=== PATIENT | female | born 1965 | race Two or more races ===

== ENCOUNTER 2017-08-10 14:20 | Day surgery (SDC) | payer OTHER ==
[2017-08-10] VITALS (10 sets, daily range): BP systolic 120–138; BP diastolic 69–82
[~2017-08-10] VITALS: Ht 157.5 cm; Wt 59.9 kg
--- NOTE | 2017-08-10 15:00 | History & Physical ---
History and Physical History & Physicial GYNECOLOGY HISTORY AND PHYSICAL CC: Vaginal bleeding since March, intermittently heavy with passage of large clots HPI: Patient presented to me today with report of persistent bleeding since March with intermittent heavy bleeding with clots q2w for 1-2 weeks at a time. She also reports some watery yellow-jame discharge. Some abdominal pain but denies any today. She had an ultrasound in June which was remarkable for uterine fibroids and bilateral small ovarian cysts. In my office, speculum exam revealed a prolapsing myoma that was not amenable to removal in the office safely. Thus the patient was sent to the ED for evaluation and likely surgical intervention. PMH: Hyperlipidemia managed with diet, seasonal allergies managed with nasal spray, denies HTN, DM, or ashtma. PSH: Hysteroscopu and HSG for infertility MEDS: Nasal spray, denies any other meds ALLERGIES: NKDA SOCHx: Denies T/E/D, works as a sales and marketing engineer VITALS: BP 140/80 in the office, P 78 PHYSICAL EXAM: GEN: NAD, A&Ox4 HEENT:OP clear, MMM CV: RRR PULM: No increased work of breathing, resp even/unlabored ABD: Soft, moderate TTP in RLQ, mild TTP in LLQ and suprapubic area PELVIC: NEFG, no masses or lesions. Cervix normal shape, but once Pap performed a mass was noted to begin protruding from the external os. Noted to be a prolapsing cervical fibroid. Bleeding noted around fibroid and building up within the vault. Uterus TTP on elevation and enlarged with palpable fibroid in RLQ. NO adnexal masses appreciated. EXT: No calf TTP, WWP LABS: CBC: 7.2>12.0/36.0<263 ASSESSMENT/PLAN: Patient with prolapsing fibroid on exam and vaginal bleeding. I recommend immediate removal of fibroid, but cannot be safely done in the office due to risk of bleeding. Patient counseled that I recommend she be seen in the ED immediately and plan for surgical removal of fibroid at the hospital. Patient is ambulatory and clinically stable. She will self-transport to [facility] where she will be evalauted in ED and anticipate transfer to OR once ED workup complete. Recommend Pelvic US once in ED. Angie Weldon M.D. Aug 10, 2017 15:00
--- NOTE | 2017-08-10 15:04 | Emergency Room Report ---
History of Present Illness General Chief Complaint: Vaginal Source: Patient Present Illness HPI Patient present with increase in heavy vaginal bleeding Patient has been lightheaded has been having off-and-on increased bleeding After being evaluated earlier today patient was found to have more complicated vaginal bleeding and sent to the emergency room Patient here denies any chest pain Denies any back or flank pain denies any vomiting or diarrhea Denies any recent change in medications Allergies: Coded Allergies: Molds and Smuts (Verified Allergy, Unknown, 08/10/17) Patient History Past Medical History: see triage record Pertinent Family History: none Last Menstrual Period: Unk Reviewed Nursing Documentation: PMH: Agreed, PSxH: Agreed Nursing Documentation-PMH Past Medical History: No Stated History Review of Systems All Other Systems: negative except mentioned in HPI Physical Exam Vital Signs Date Time Temp Pulse Resp B/P (MAP) Pulse Ox O2 Delivery O2 Flow Rate FiO2 08/10/17 14:29 98.6 76 16 136/82 98 Room Air Sp02 EP Interpretation: reviewed, normal General Appearance: alert, GCS 15 Head: normocephalic, atraumatic Eyes: bilateral eye PERRL, bilateral eye EOMI ENT: hearing grossly normal, normal pharynx, TMs + canals normal, uvula midline Neck: full range of motion, supple, no meningismus, no bony tend Respiratory: lungs clear, normal breath sounds, no rhonchi, no respiratory distress, no retraction, no accessory muscle use Cardiovascular #1: normal peripheral pulses, regular rate, rhythm, no edema, no gallop, no JVD, no murmur Gastrointestinal: normal bowel sounds, non tender, soft, no mass, no organomegaly, non-distended, no guarding, no hernia, no pulsatile mass, no rebound Genitourinary: no CVA tenderness, other - Heavy vaginal bleeding noted, there is a mass palpated clinically ultrasound is pending Musculoskeletal: normal inspection Neurologic: oriented x3, responsive, conflicts analyst III-XII nml as tested, motor strength/ tone normal, sensory intact Psychiatric: mood/affect normal Skin: normal color, no rash, warm/dry, palpation normal Lymphatic: normal inspection, no adenopathy Medical Decision Making Diagnostic Impression: Primary Impression: significant bleeding Additional Impression: Vaginal bleeding ER Course Given the patient's history and presentation multiple differentials considered I did speak to the patient specialist to report of the patient has had a prolapsed fibroid which has been bleeding significantly Examination also reveals vaginal bleeding Patient had ultrasound obtained from the emergency room at this time requires further operative care Labs Test 08/10/17 15:00 White Blood Count 9.3 K/UL (4.8-10.8) Red Blood Count 4.15 M/UL (4.20-5.40) Hemoglobin 13.4 G/DL (12.0-16.0) Hematocrit 41.1 % (37.0-47.0) Mean Corpuscular Volume 99 FL (80-99) Mean Corpuscular Hemoglobin 32.3 PG (27.0-31.0) Mean Corpuscular Hemoglobin Concent 32.6 G/DL (32.0-36.0) Red Cell Distribution Width 12.5 % (11.6-14.8) Platelet Count 257 K/UL (150-450) Mean Platelet Volume 6.6 FL (6.5-10.1) Neutrophils (%) (Auto) 80.4 % (45.0-75.0) Lymphocytes (%) (Auto) 11.7 % (20.0-45.0) Monocytes (%) (Auto) 5.9 % (1.0-10.0) Eosinophils (%) (Auto) 0.9 % (0.0-3.0) Basophils (%) (Auto) 1.1 % (0.0-2.0) Prothrombin Time 9.6 SEC (9.30-11.50) Prothromb Time International Ratio 0.9 (0.9-1.1) Activated Partial Thromboplast Time 27 SEC (23-33) Sodium Level 139 MMOL/L (136-145) Potassium Level 3.9 MMOL/L (3.5-5.1) Chloride Level 105 MMOL/L (98-107) Carbon Dioxide Level 26 MMOL/L (21-32) Anion Gap 9 mmol/L (5-15) Blood Urea Nitrogen 13 mg/dL (7-18) Creatinine 0.6 MG/DL (0.55-1.30) Estimat Glomerular Filtration Rate > 60 mL/min (>60) Glucose Level 110 MG/DL (74-106) Calcium Level 9.4 MG/DL (8.5-10.1) CT/MRI/US Diagnostic Results CT/MRI/US Diagnostic Results : Impression pelvic ultrasoundImpression: Bulbous thickening appearing endometrium. Further evaluation of this is needed. The prominence could be on the basis of an underlying submucosal fibroid, polyp or other mass. CARGO MATE referral is recommended as followup. MRI may be helpful for further evaluation. Multiple uterine fibroids. Last Vital Signs Date Time Temp Pulse Resp B/P (MAP) Pulse Ox O2 Delivery O2 Flow Rate FiO2 08/10/17 14:29 98.6 76 16 136/82 98 Room Air Status: improved Disposition: HOME, SELF-CARE Condition: Improved Additional Instructions: The patient is taken to the operative room, will be having a procedure and anticipated discharge home FLORIAN SLATER D.O. Aug 10, 2017 15:04
[2017-08-10 15:20] LABS: BASOPHILS % (AUTO) 1.1 % (0.0-2.0); EOSINOPHILS % (AUTO) 0.9 % (0.0-3.0); LYMPHOCYTES % (AUTO) 11.7 % (20.0-45.0); MEAN CORPUSCULAR HEMOGLOBIN 32.3 PG (27.0-31.0); MEAN CORPUSCULAR HGB CONC 32.6 G/DL (32.0-36.0); MEAN CORPUSCULAR VOLUME 99 FL (80-99); MEAN PLATELET VOLUME 6.6 FL (6.5-10.1); MONOCYTES % (AUTO) 5.9 % (1.0-10.0); NEUTROPHILS % (AUTO) 80.4 % (45.0-75.0); PLATELET COUNT 257 K/UL (150-450); RED BLOOD COUNT 4.15 M/UL (4.20-5.40); RED CELL DISTRIBUTION WIDTH 12.5 % (11.6-14.8); WHITE BLOOD COUNT 9.3 K/UL (4.8-10.8)
[2017-08-10 15:28] LABS: INR 0.9 (0.9-1.1); PROTHROMBIN TIME 9.6 SEC (9.30-11.50)
[2017-08-10 15:33] LABS: ANION GAP 9 mmol/L (5-15); CALCIUM 9.4 MG/DL (8.5-10.1); CARBON DIOXIDE 26 MMOL/L (21-32); CHLORIDE 105 MMOL/L (98-107); CREATININE 0.6 MG/DL (0.55-1.30); GLOMERULAR FILTRATION RATE > 60 mL/min (>60); POTASSIUM 3.9 MMOL/L (3.5-5.1); SODIUM 139 MMOL/L (136-145)
[2017-08-10] MEDS ORDERED: cefOXitin 1gm Inj ONE (16:15)
[2017-08-10] MEDS ORDERED: Bupivacaine 0.5% Inj 30 ml vial INJ ONE (16:18)
[2017-08-10] MEDS ORDERED: NKM (16:53)
--- NOTE | 2017-08-10 16:53 | Diagnostic Imaging Report ---
Indication:Vaginal bleeding. Pelvic pain Technique: Grayscale and duplex Doppler imaging of the pelvis performed utilizing a transabdominal scan and endovaginal scan. Comparison: None Findings: Multiple masses are noted in the uterus. The largest of these is about 4 cm demonstrated within the dorsal or posterior uterine body. The endometrium is prominent and heterogeneous (20mm). Underlying endometrial polyp and/or a submucosal fibroid is not excluded. Further evaluation with MRI is recommended. Both ovaries are normal in appearance and demonstrates a few follicles a dopplerable blood flow. The right ovary is 3.6 x 2.5 x 1.8 cm. Left ovary 3.5 x 2.2 x 1.7 cm. Uterus measures 8.9 x 8 x 5.2 cm. Impression: Bulbous thickening appearing endometrium. Further evaluation of this is needed. The prominence could be on the basis of an underlying submucosal fibroid, polyp or other mass. PRODUCT HANDLER referral is recommended as followup. MRI may be helpful for further evaluation. Multiple uterine fibroids.
[2017-08-10] MEDS ORDERED: LR 1000ml 1,000 ML IVLG SCH (16:56)
--- NOTE | 2017-08-10 16:56 | Anethesia Preoperative Eval ---
Anesthesia Pre-op PMH/ROS General Date of Evaluation: Aug 10, 2017 Time of Evaluation: 17:56 Anesthesiologist: Gabriel ASA Score: ASA 2 - Emergency Mallampati Score Class I : Soft palate, uvula, fauces, pillars visible Class II: Soft palate, uvula, fauces visible Class III: Soft palate, base of uvula visible Class IV: Only hard plate visible Mallampati Classification: Class II Surgeon: Fatemeh Diagnosis: Vaginal Bleeding Surgical Procedure: Myomectomy Anesthesia History: none Family History: no anesthesia problems Allergies: Coded Allergies: Molds and Smuts (Verified Allergy, Unknown, 08/10/17) Medications: see eMAR Past Medical History Cardiovascular: Reports: HTN Anesthesia Pre-op Phys. Exam Physician Exam Last Vital Signs Date Time Temp Pulse Resp B/P (MAP) Pulse Ox O2 Delivery O2 Flow Rate FiO2 08/10/17 14:29 98.6 76 16 136/82 98 Room Air Constitutional: NAD Neurologic: CN 2-12 intact Cardiovascular: RRR Respiratory: CTA Gastrointestinal: S/NT/ND Airway Exam Mallampati Score: Class II MO: limited ROM: full Teeth: intact Anesthesia Pre-op A/P Labs Hematology Test 08/10/17 15:00 White Blood Count 9.3 K/UL (4.8-10.8) Red Blood Count 4.15 M/UL (4.20-5.40) L Hemoglobin 13.4 G/DL (12.0-16.0) Hematocrit 41.1 % (37.0-47.0) Mean Corpuscular Volume 99 FL (80-99) Mean Corpuscular Hemoglobin 32.3 PG (27.0-31.0) H Mean Corpuscular Hemoglobin Concent 32.6 G/DL (32.0-36.0) Red Cell Distribution Width 12.5 % (11.6-14.8) Platelet Count 257 K/UL (150-450) Mean Platelet Volume 6.6 FL (6.5-10.1) Neutrophils (%) (Auto) 80.4 % (45.0-75.0) H Lymphocytes (%) (Auto) 11.7 % (20.0-45.0) L Monocytes (%) (Auto) 5.9 % (1.0-10.0) Eosinophils (%) (Auto) 0.9 % (0.0-3.0) Basophils (%) (Auto) 1.1 % (0.0-2.0) Coagulation Test 08/10/17 15:00 Prothrombin Time 9.6 SEC (9.30-11.50) Prothromb Time International Ratio 0.9 (0.9-1.1) Activated Partial Thromboplast Time 27 SEC (23-33) Chemistry Test 08/10/17 15:00 Sodium Level 139 MMOL/L (136-145) Potassium Level 3.9 MMOL/L (3.5-5.1) Chloride Level 105 MMOL/L (98-107) Carbon Dioxide Level 26 MMOL/L (21-32) Anion Gap 9 mmol/L (5-15) Blood Urea Nitrogen 13 mg/dL (7-18) Creatinine 0.6 MG/DL (0.55-1.30) Estimat Glomerular Filtration Rate > 60 mL/min (>60) Glucose Level 110 MG/DL (74-106) H Calcium Level 9.4 MG/DL (8.5-10.1) Risk Assessment & Plan Assessment: ASA 2E Plan: GA, BIS, GlideScope Status Change Before Surgery: No Pre-Antibiotics Dru Gram Cefoxitin IV Given Within 1 Hr of Incision: Yes Time Given: 18:16 Trace Rios MD Aug 10, 2017 16:56
[2017-08-10] MEDS ORDERED: LR 1000ml ONE (17:00)
[2017-08-10] MEDS ORDERED: Hydromorphone 0.5mg/0.5ml inj IVP PRN (17:00)
[2017-08-10] MEDS ORDERED: Ketorolac 30mg Inj IV PRN (17:00)
[2017-08-10] MEDS ORDERED: Norco 5mg/325mg tab ORAL PRN (17:00)
[2017-08-10] MEDS ORDERED: LORazepam Inj 2mg/ml 1ml IV PRN (17:00)
[2017-08-10] MEDS ORDERED: Metoclopramide 10mg/2ml Inj IVP PRN (17:00)
[2017-08-10] MEDS ORDERED: ProvayBlue 5mg/ml 10ml amp INJ ONE (17:00)
[2017-08-10] MEDS ORDERED: Norco 7.5mg/325mg tab ORAL PRN (17:00)
[2017-08-10] MEDS ORDERED: Dexamethasone 4mg/ml vial ONE (17:00)
[2017-08-10] MEDS ORDERED: Midazolam 2mg/2ml Inj ONE (17:00)
[2017-08-10] MEDS ORDERED: Lidocaine 1% MPF 10mg/ml 5ml ONE (17:00)
[2017-08-10] MEDS ORDERED: Midazolam 2mg/2ml Inj IVP PRN (17:00)
[2017-08-10] MEDS ORDERED: Atropine Inj 1mg/10ml Syr IV PRN (17:00)
[2017-08-10] MEDS ORDERED: Sulfanilamide 15% Cream - 78gm VAGIN ONE (17:00)
[2017-08-10] MEDS ORDERED: DiphenhydrAMINE 50mg/ml Inj IVP PRN (17:00)
[2017-08-10] MEDS ORDERED: Ketorolac 60mg Inj IV PRN (17:00)
[2017-08-10] MEDS ORDERED: oxyCODONE HCL/Acetaminophen 5/325mg ORAL PRN (17:00)
[2017-08-10] MEDS ORDERED: fentaNYL 100 mcg/2 mL IV PRN (17:00)
[2017-08-10] MEDS ORDERED: fentaNYL 100 mcg/2 mL IV ONE (17:00)
[2017-08-10] MEDS ORDERED: Ketorolac 30mg Inj ONE (17:00)
[2017-08-10] MEDS ORDERED: Propofol 200mg/20ml IV ONE (17:00)
[2017-08-10] MEDS ORDERED: Acetaminophen (Non formulary) 100 ML IV ONE (17:15)
--- NOTE | 2017-08-10 18:05 | Immediate Post-Op Evaluation ---
Immediate Post-Op Evalulation Immediate Post-Op Evalulation Procedure: Myomectomy Date of Evaluation: Aug 10, 2017 Time of Evaluation: 19:15 IV Fluids: 300 LR Blood Products: 0 Estimated Blood Loss: 20 Urinary Output: 0 Blood Pressure Systolic: 135 Blood Pressure Diastolic: 87 Pulse Rate: 94 Respiratory Rate: 16 O2 Sat by Pulse Oximetry: 100 Temperature (Fahrenheit): 97.3 Pain Score (1-10): 2 Nausea: No Vomiting: No Complications 0 Patient Status: awake, reacts, patent, extubated, none Hydration Status: adequate Dru Gram Cefoxitin IV Time Given: 18:16 Trace Rios MD Aug 10, 2017 18:05
--- NOTE | 2017-08-10 18:37 | 48 Hour Post Anesthesia Eval ---
Post Anesthesia Evaluation Procedure: Myomectomy Date of Evaluation: Aug 10, 2017 Time of Evaluation: 21:23 Blood Pressure Systolic: 143 0: 78 Pulse Rate: 67 Respiratory Rate: 18 Temperature (Fahrenheit): 98.2 O2 Sat by Pulse Oximetry: 100 Airway: patent Nausea: No Vomiting: No Pain Intensity: 2 Hydration Status: adequate Cardiopulmonary Status: Stable Mental Status/LOC: patient returned to baseline Follow-up Care/Observations: 0 Post-Anesthesia Complications: 0 Follow-up care needed: ready to discharge Trace Rios MD Aug 10, 2017 18:37
[2017-08-10] MEDS ORDERED: NS Irrig 1000ml IRRIG ONE (19:02)
--- NOTE | 2017-08-10 19:16 | Pre-Procedure Note/Attestation ---
Pre-Procedure Note/Attestation Complete Prior to Procedure Procedure Narrative: Vaginal myomectomy, hysteroscopy, dilation and curettage Indications for Procedure Pre-Operative Diagnosis: Prolapsing myoma, and abnormal uterine bleeding Attestation I attest that I discussed the nature of the procedure; its benefits; risks and complications; and alternatives (and the risks and benefits of such alternatives ), prior to the procedure, with the patient (or the patient's legal escrow representative). I attest that, if there was a reasonable possibility of needing a blood transfusion, the patient (or the patient's legal escrow representative) was given the [facility] standardized written summary, pursuant to the [facility] Blood Safety Act ([place] Health and Safety Code # 1645, as amended). I attest that I re-evaluated the patient just prior to the surgery and that there has been no change in the patient's H&P, except as documented below: Angie Klein M.D. Aug 10, 2017 19:16
--- NOTE | 2017-08-10 19:20 | Brief Operative Note ---
Immediate Post Operative Note Operative Note Pre-op Diagnosis: Prolapsing myoma, and abnormal uterine bleeding Procedure: Vaginal myomectomy, hysteroscopy, dilation and curettage Post-op Diagnosis: Prolapsing cervical myoma, abnormal uterine bleeding Post-op Diagnosis: same as pre-op Findings: consistent w/pre-op dx studies Surgeon: Angie Weldon MD Financial Systems Analyst: Charlie Trevizo MD ([place]) Anesthesiologist: Trace Rios MD Anesthesia: general Specimen: yes - Cervical myoma, endometrial curettings Complications: none Condition: stable Fluids: 500cc LR Estimated Blood Loss: volume - 20cc Drains: none Packing: None Implant(s) used?: No Angie Weldon M.D. Aug 10, 2017 19:20
--- NOTE | 2017-08-10 19:21 | Discharge Instructions ---
Discharge Instructions Discharge Instructions Call MD/Return to Hospital if: Worsening bleeding, pain, fever Diet: regular Resume Normal Activity?: No - No heavy lifting for 1 week. OK to return to light duty once bleeding is stable and no pain. For Congestive Heart Failure Reminder Report to your physician any weight gain of 5 pounds or more in one week. Angie Weldon M.D. Aug 10, 2017 19:21
--- NOTE | 2017-08-10 19:23 | Operative Note - PDOC ---
Operative Note Operative Note Date of Operation/Procedure: Aug 10, 2017 Chief Complaint: abnormal uterine bleeding, prolapsing myoma Pre-op Diagnosis: Prolapsing myoma, and abnormal uterine bleeding Procedure: Vaginal myomectomy, hysteroscopy, dilation and curettage Post-op Diagnosis: Prolapsing cervical myoma, abnormal uterine bleeding Post-op Diagnosis: same as pre-op Operative Findings: consistent w/pre-op dx studies Surgeon: Angie Weldon MD Bisque Brusher: Charlie Trevizo MD ([place]) Anesthesiologist: Trace Rios MD Anesthesia: general Specimen: yes - Cervical myoma, endometrial curettings Complications: none Condition: stable Fluids: 500cc LR Estimated Blood Loss: volume - 20cc Drains: none Packing: None Implant(s) used?: No Indications for Procedure Patient presented to the office with history of abnormal uterine bleeding since March. On exam in the office, prolapsing myoma was appreciated. Recommended surgical intervention as soon as possible given risk of continued bleeding. Description of Procedure The risks, benefits, and alternatives to the procedure were discussed with the patient, and informed consent was obtained. The patient was taken to the operating room where general LMA anesthesia was obtained without difficulty after placement of SCD stockings. The patient was positioned in dorsal lithotomy in Woodrow stirrups. The patient was prepped and draped in the usual sterile fashion and the bladder was drained. Retractors were placed in the vagina and the prolapsing myoma was clearly visualized. The myoma was grasped with a single-toothed tenaculum and traction revealed the base. 0-Vicryl sutures were tied at the base of the myoma and the stalk was dissected using bipolar energy. Excellent hemostasis was noted. A ring forcep was placed on the anterior lip of the cervix. Hysteroscopy was then performed. The uterine cavity did not demonstrate any additional fibroids requiring resection. The hysteroscope was withdrawn and endometrial curettage was performed. The ring forceps were removed and excellent hemostasis was noted. All sponge, instrument, and needle counts were correct x 2. The patient was awakened from anesthesia and transferred to the recovery room in stable condition. roverto Herron, was present for the entire procedure. Angie Weldon M.D. Aug 10, 2017 19:23
--- NOTE | 2017-08-11 15:37 | Cardiology Report ---
APPROVED REPORT EKG Measurement Heart [id number] Normal sinus rhythm Normal ECG
== END 2017-08-10 20:45 | disposition home or self-care (01) ==
LOC: EMR 16:00 → CANBEDREQ 18:01 → SUR 18:10
DX: D25.9 Leiomyoma of uterus, unspecified (principal); N93.8 Other specified abnormal uterine and vaginal bleeding; E78.5 Hyperlipidemia, unspecified; I10 Essential (primary) hypertension
CPT/HCPCS: 36415; 58561; 76856; 80048; 85025; 85610; 85730; 93005; 99285; J0694; J1100; J1885; J2250; J2405; J2704; J3010; J7120; 94003; 94150